=== PATIENT | female | born 1950 | race African-American/Black ===

== ENCOUNTER 2023-02-13 09:14 | Emergency (ER) | payer OTHER, MEDICAID ==
[~2023-02-13] VITALS: Ht 170.2 cm; Wt 72.0 kg
[2023-02-13 09:24] VITALS: O2SAT 100
[2023-02-13] MEDS ORDERED: HYDROCODONE/ACETAMINOPHEN 10/325MG TABLET PO ONE (09:45)
[2023-02-13] MEDS ORDERED: IBUP-2029 MT (11:29)
[2023-02-13] MEDS ORDERED: HYDROCODONE/ACETAMINOPHEN 10/325MG TABLET PO NR (11:45)
[2023-02-13 11:52] VITALS: BP 154/65; PULSE 61; RESP 16; TEMP 98.8
== END 2023-02-13 12:11 | disposition home or self-care (01) ==
LOC: ER 10:14
DX: S62.617A Displaced fracture of proximal phalanx of left little finger, initial encounter for closed fracture (principal); S62.615A Displaced fracture of proximal phalanx of left ring finger, initial encounter for closed fracture; E11.9 Type 2 diabetes mellitus without complications; I10 Essential (primary) hypertension; W19.XXXA Unspecified fall, initial encounter; Y93.89 Activity, other specified; Y92.89 Other specified places as the place of occurrence of the external cause; Y99.8 Other external cause status
CPT/HCPCS: 29125; 73110; 73130; 99284